=== PATIENT | female | born 1985 ===

== ENCOUNTER 2022-04-29 18:26 | Emergency (ER) | payer OTHER ==
[~2022-04-29] VITALS: Ht 165.1 cm; Wt 90.7 kg
[2022-04-29] MEDS ORDERED: CEPH500 PO (20:55)
== END 2022-04-29 21:26 | disposition home or self-care (01) ==
LOC: ER 18:26
DX: N61.0 Mastitis without abscess (principal)
CPT/HCPCS: A9270; J1885

== ENCOUNTER 2024-04-22 01:52 | Emergency (ER) | payer OTHER ==
[~2024-04-22] VITALS: Ht 167.6 cm; Wt 83.9 kg
[~2024-04-22 01:52] MED LIST: CEPH500 PO
[2024-04-22 02:00] VITALS: BP 137/88
[2024-04-22] MEDS ORDERED: Metformin HCl750 MG PO (02:05)
[2024-04-22] MEDS ORDERED: Diphth,Pertuss(Acell),Tet Vac 0.5 ML VIAL IM ONE (02:40)
== END 2024-04-22 02:44 | disposition home or self-care (01) ==
LOC: ER 01:52
DX: S61.212A Laceration without foreign body of right middle finger without damage to nail, initial encounter (principal); E11.9 Type 2 diabetes mellitus without complications; W26.9XXA Contact with unspecified sharp object(s), initial encounter; Z79.84 Long term (current) use of oral hypoglycemic drugs
CPT/HCPCS: 90471; 90715; 99282-25